=== PATIENT | male | born 1980 | race American Indian/Alaskan Native ===

== ENCOUNTER 2017-07-30 11:33 | Emergency (ER) | payer OTHER ==
[2017-07-30 12:48] LABS: Basophils % (Auto) 0.2 % (0.0-1.8); Eosinophils # (Auto) 0.1 K/mm3 (0.0-0.4); Eosinophils % (Auto) 1.4 % (0.0-4.3); Hematocrit 49.1 % (35.5-45.6); Hemoglobin 16.4 gm/dl (11.8-15.2); Lymphocytes # (Auto) 1.1 K/mm3 (1.2-5.4); Lymphocytes % (Auto) 22.1 % (13.4-35.0); Mean Corpuscular HGB Conc 33 % (32-34); Mean Corpuscular Hemoglobin 30 pg (28-32); Mean Corpuscular Volume 89 fl (84-94); Monocytes # (Auto) 0.5 K/mm3 (0.0-0.8); Monocytes % (Auto) 10.4 % (0.0-7.3); Platelet Count 205 K/mm3 (140-440); Red Blood Count 5.54 M/mm3 (3.65-5.03); Red Cell Distribution Width 13.5 % (13.2-15.2)
--- NOTE | 2017-07-30 13:01 | XRay Report ---
ROUTINE CHEST, TWO VIEWS: HISTORY: chest pain. The trachea, heart, mediastinal contour, and lung aiken are unremarkable. Scoliosis is noted. IMPRESSION: Unremarkable chest x-ray.
[2017-07-30 13:03] LABS: BUN/Creatinine Ratio 5; Blood Urea Nitrogen 6 mg/dL (9-20); Calcium 9.2 mg/dL (8.4-10.2); Hemolysis Index 18
[2017-07-30] MEDS ORDERED: CATAPRES PO ONE ×2 (14:00→14:02)
[2017-07-30] MEDS ORDERED: CATAPRES ONE (14:02)
--- NOTE | 2017-07-30 14:07 | Emergency Department Report ---
Blank Doc - Documentation Documentation: Patient is a 37-year-old [place] male who is presenting with hypertension. Patient blood pressure was almost 160 systolic with elevated diastolic as well this was done prior to arrival patient was having some numbness to the face which prompted his blood pressure checked a week ago patient had a blood pressure checked at [place] which was slightly elevated as well exposed to go back tomorrow for a recheck. Patient denies any chest pain shortness of breath at this time. Patient was given a Catapres will be reassessed
--- NOTE | 2017-07-30 14:58 | Emergency Department Report ---
ED General Adult HPI - General Chief complaint: Dyspnea/Respdistress Stated complaint: SOB/DIZZINESS Time Seen by Provider: 07/30/17 13:56 Source: patient Mode of arrival: Ambulatory Limitations: No Limitations - History of Present Illness Initial comments: Patient is a 37-year-old [place] male who is presenting with hypertension. Patient blood pressure was almost 160 systolic with elevated diastolic as well this was done prior to arrival patient was having some numbness to the face which prompted his blood pressure checked a week ago patient had a blood pressure checked at [place] which was slightly elevated as well exposed to go back tomorrow for a recheck. Patient denies any chest pain shortness of breath at this time. Patient was given a Catapres will be reassessed MD Complaint: 1 -: week(s) Location: face Radiation: non-radiation Severity scale (0 -10): 3 Quality: aching Consistency: intermittent Improves with: none Worsens with: none Associated Symptoms: denies: chest pain, cough, diaphoresis, fever/chills, headaches, loss of appetite, malaise, nausea/vomiting, rash, seizure, shortness of breath, syncope, weakness Treatments Prior to Arrival: none - Related Data Previous Rx's Medication Instructions Recorded Last Taken Type Hydrochlorothiazide [HCTZ] 25 mg PO QDAY #30 tablet 07/30/17 Unknown Rx Allergies Allergy/AdvReac Type Severity Reaction Status Date / Time No Known Allergies Allergy Unverified 07/30/17 11:38 ED Review of Systems ROS: Stated complaint: SOB/DIZZINESS Other details as noted in HPI Constitutional: denies: chills, fever Eyes: denies: eye pain, eye discharge, vision change ENT: denies: ear pain, throat pain Respiratory: denies: cough, shortness of breath, wheezing Cardiovascular: denies: chest pain, palpitations Endocrine: no symptoms reported Gastrointestinal: denies: abdominal pain, nausea, diarrhea Genitourinary: denies: urgency, dysuria Musculoskeletal: denies: back pain, joint swelling, arthralgia Skin: denies: rash, lesions Neurological: paresthesias (facial ). denies: headache, numbness, abnormal gait , vertigo Psychiatric: denies: anxiety, depression Hematological/Lymphatic: denies: easy bleeding, easy bruising ED Past Medical Hx - Past Medical History Previous Medical History?: No Hx Hypertension: Yes - Surgical History Past Surgical History?: Yes Hx Appendectomy: Yes Additional Surgical History: T&A - Social History Smoking Status: Never Smoker Substance Use Type: None - Medications Home Medications: Home Medications Medication Instructions Recorded Confirmed Last Taken Type Hydrochlorothiazide [HCTZ] 25 mg PO QDAY #30 tablet 07/30/17 Unknown Rx ED Physical Exam - General Limitations: No Limitations General appearance: alert, in no apparent distress - Head Head exam: Present: atraumatic, normocephalic - Eye Eye exam: Present: normal appearance, PERRL, EOMI Pupils: Present: normal accommodation - ENT ENT exam: Present: normal orophraynx, mucous membranes moist. Absent: TM's normal bilaterally - Neck Neck exam: Present: normal inspection, full ROM. Absent: lymphadenopathy, thyromegaly - Respiratory Respiratory exam: Present: normal lung sounds bilaterally. Absent: respiratory distress, wheezes, stridor, chest wall tenderness - Cardiovascular Cardiovascular Exam: Present: regular rate, normal rhythm. Absent: systolic murmur, diastolic murmur, rubs, gallop - GI/Abdominal GI/Abdominal exam: Present: soft, normal bowel sounds. Absent: distended, tenderness, guarding, rebound, rigid, organomegaly, mass, bruit, pulsatile mass , hernia - Rectal Rectal exam: Present: deferred - exam: Present: normal inspection - Extremities Exam Extremities exam: Present: normal inspection - Back Exam Back exam: Present: normal inspection - Neurological Exam Neurological exam: Present: alert, oriented X3, CN II-XII intact, normal gait, reflexes normal - Psychiatric Psychiatric exam: Present: normal affect, normal mood - Skin Skin exam: Present: warm, dry, intact, normal color. Absent: rash ED Course Vital Signs 07/30/17 11:38 Temperature 97.8 F Pulse Rate 68 Respiratory 17 Rate Blood Pressure 154/106 O2 Sat by Pulse 97 Oximetry ED Medical Decision Making - Lab Data Result diagrams: 07/30/17 12:15 07/30/17 12:15 Laboratory Tests 07/30/17 07/30/17 12:15 12:15 WBC 4.9 RBC 5.54 H Hgb 16.4 H Hct 49.1 H MCV 89 MCH 30 MCHC 33 RDW 13.5 Plt Count 205 Lymph % (Auto) 22.1 [place] % (Auto) 10.4 H Eos % (Auto) 1.4 Baso % (Auto) 0.2 Lymph # 1.1 L [place] # 0.5 Eos # 0.1 Baso # 0.0 Seg Neutrophils % 65.9 Seg Neutrophils # 3.2 Sodium 138 Potassium 4.1 Chloride 97.8 L Carbon Dioxide 23 Anion Gap 21 BUN 6 L Creatinine 1.1 Estimated GFR > 60 BUN/Creatinine Ratio 5 Glucose 79 Calcium 9.2 - Radiology Data Radiology results: report reviewed, image reviewed normal chest xray , no opacities no infiltrates. - Medical Decision Making Patient is a 37-year-old [place] male who is presenting with hypertension. Patient blood pressure was almost 160 systolic with elevated diastolic as well this was done prior to arrival patient was having some numbness to the face which prompted his blood pressure checked a week ago patient had a blood pressure checked at [place] which was slightly elevated as well exposed to go back tomorrow for a recheck. Patient denies any chest pain shortness of breath at this time. Patient was given a Catapres will be reassessed patient appears well and nontoxic well-hydrated well-nourished BB reduced 140/72 at this point heart rate 68 patient had a history of premature shortness of breath no dizziness no lightheadedness no chest pain no nausea vomiting patient will be DC 'd home in stable condition at this time prescription for thiazide 25 mg by mouth daily follow-up with Any doctor tomorrow we'll maintain daily BP log and bring to follow up appointment patient states all symptoms resolved at this time Critical care attestation.: If time is entered above; I have spent that time in minutes in the direct care of this critically ill patient, excluding procedure time. ED Disposition Clinical Impression: HTN (hypertension) Qualifiers: Hypertension type: essential hypertension Qualified Code(s): I10 - Essential ( primary) hypertension Disposition: DC- TO HOME OR SELFCARE Is pt being admited?: No Does the pt Need Aspirin: No Condition: Good Instructions: Hypertension (ED) Prescriptions: Hydrochlorothiazide [HCTZ] 25 mg PO QDAY #30 tablet Referrals: ANY [facility] [Other] - 3-5 Days Forms: Work/School Release Form(ED) Time of Disposition: 15:02
[2017-07-30 15:14] VITALS: BP 124/89
== END 2017-07-30 15:12 | disposition home or self-care (01) ==
LOC: ED 11:33
DX: I10 Essential (primary) hypertension (principal); R20.2 Paresthesia of skin; Z90.49 Acquired absence of other specified parts of digestive tract
CPT/HCPCS: 36415; 71046; 80048; 85025